=== PATIENT | female | born 1945 | race Caucasian/White ===

== ENCOUNTER 2020-09-19 07:58 | Inpatient (IN) | payer MEDICARE, OTHER, MEDICAID ==
[~2020-09-19] VITALS: Ht 149.9 cm; Wt 54.4 kg
--- NOTE | ~2020-09-19 | EMS ---
[address] [address] EMS Patient Care Report Name: MIKALA MESSER Room: [address] IN M.R.#: [id number] Admission: 09/19/20 Attend Phys: Tessie Black MD Discharge: Date of : 43 Report #: [id number] THIS REPORT FOR: //name// Report Transmitted: 09/19/2020 13:15 EMS Care Summary [place] Incident [phone] @ 09/19/2020 07:08 Incident Location [address] [place] [id number] Patient MIKALA MESSER Female, 75 Years 1945 Patient Address [address] [place], [place] [id number] Patient History Hypertension (HTN),Atrial Fibrillation, Patient Allergies No known allergies, Patient Medications Other, Metoprolol, Hydrochlorothiazide (Hctz), Atorvastatin, Chief Complaint syncope Disposition Transported No Lights/[place] Dispatch Reason Falls Transported To [facility] Narrative Dispatched to a residence for 75y/o female who fell. Upon arrival pt. was sitting on the floor alert and oriented. Pt. stated that after having a bowel movement she stood up and felt lightheaded and lowered herself to the floor. [address] [address] EMS Patient Care Report Name: MIKALA MESSER OCTOBER Room: [address] IN [place].#: [id number] Admission: 09/19/20 Attend Phys: Tessie Black MD Discharge: Date of : 43 Report #: [id number] Pt. denies LOC and any injury. Pt. has history of HTN and family stated that pt. has had similar incidents when her BP is "messed up". BP was checked while sitting on the floor and then again when standing. When pt. stood up she felt lightheaded and had to be supported by EMS. BP decreased substantially when standing. Pt. VS remained stable throughout transport and pt. had no complaints during transport. Pt. was transported to [place] for emergency services. Initial Vitals @07:12P: 89,R: 18,BP: 145/84,Pain: 0/10,GCS: 15,Glucose: 126,SpO2: 94,Revised Trauma: 12,IN Suspected: false @07:14P: 98,R: 18,BP: 96/49,Pain: 0/10,GCS: 15,SpO2: 94,Revised Trauma: 12, @07:25P: 70,R: 18,BP: 145/72,Pain: 0/10,GCS: 15,SpO2: 95,Revised Trauma: 12, @07:40P: 90,R: 18,BP: 140/80,Pain: 0/10,GCS: 15,SpO2: 95,Revised Trauma: 12, Assessments @07:10MENTAL:No Abnormalities,SKIN:No Abnormalities,HEENT:Head/Face: No Abnormalities,Eyes: No Abnormalities,Neck/Airway: No Abnormalities,LUNG SOUNDS:General: No Abnormalities,Left Upper: No Abnormalities,Right Upper: No Abnormalities,Left Lower: No Abnormalities,Right Lower: No Abnormalities,ABDOMEN:General: No Abnormalities,Left Upper: No Abnormalities,Right Upper: No Abnormalities,Left Lower: No Abnormalities,Right Lower: No Abnormalities,PELVIS//GI:No Abnormalities,EXTREMITIES:Left Arm: No Abnormalities,Right Arm: No Abnormalities,Left Leg: No Abnormalities,Right Leg: No Abnormalities,PULSE:NEURO:No Abnormalities, Impression Syncope / Fainting Procedures @07:30Saline Lock 0cc (20 ga) Site: Hand-LeftResponse: UnchangedFailed@07:45Saline Lock 10cc (20 ga) Site: Forearm-RightResponse: UnchangedSucceeded Timeline 07:05,Call Received 07:08,Dispatched 07:09,En Route 07:09,Initial Responder On Scene 07:09,On Scene 07:10,At Patient 07:12,BP: 145/84 M,PULSE: 89,RR: 18 R,SPO2: 94 Ox,ETCO2: ,B,PAIN: 0,GCS: 15, 07:14,BP: 96/49 M,PULSE: 98,RR: 18 R,SPO2: 94 Ox,ETCO2: ,BG: ,PAIN: 0,GCS: 15, 07:25,BP: 145/72 M,PULSE: 70,RR: 18 R,SPO2: 95 Ox,ETCO2: ,BG: ,PAIN: 0,GCS: 15, 07:30,Saline Lock 0cc 20 ga Site: Hand-Left,Response: UnchangedFailed, 07:33,[place] [address] EMS Patient Care Report Name: MIKALA MESSER OCTOBER Room: [address] IN M.R.#: [id number] Admission: 09/19/20 Attend Phys: Tessie Black MD Discharge: Date of : 43 Report #: [id number] 07:40,BP: 140/80 M,PULSE: 90,RR: 18 R,SPO2: 95 Ox,ETCO2: ,BG: ,PAIN: 0,GCS: 15, 07:45,Saline Lock 10cc 20 ga Site: Forearm-Right,Response: UnchangedSucceeded, 07:52,At Destination 07:55,Transfer Patient 08:28,Call Closed 08:28,In District Disclaimer v1.1 Copyright 2020 [employer] This EMS Care Summary contains data elements from the applicable legal record (which may be displayed differently). It is designed to provide pertinent information for the following purposes: continuity of care, clinical quality, and state data reporting. The complete legal record is available to ED staff and administrators of the receiving hospital in [employer] Patient Tracker. All data is provided "as is."
[2020-09-19 08:43] LABS: ABSOLUTE LYMPHOCYTES 0.7 thou/uL (0.8-5.3); ABSOLUTE MONOCYTES 0.5 thou/uL (0.0-1.2); ABSOLUTE NEUTROPHILS 3.2 thou/uL (1.6-8.1); BASOPHILS 0.5 %; EOSINOPHILS 0.3 %; HEMATOCRIT 40.8 % (37.0-47.0); HEMOGLOBIN 13.6 gm/dL (12.0-15.0); LYMPHOCYTES 15.4 %; MCH 29.4 pg (26.0-34.0); MCHC 33.3 g/dL (28.0-37.0); MCV 88.2 fL (80.0-100.0); MONOCYTES 10.6 %; MPV 7.2 fl. (7.2-11.1); NUCLEATED RBCS 0 /100WBC; PLATELET COUNT* 164 thou/uL (150-400); POLYS 73.2 %; RBC 4.63 mil/uL (4.20-5.00); RDW-CV 12.4 % (10.5-14.5); WBC 4.4 thou/uL (4.0-11.0)
[2020-09-19 08:52] LABS: CALCIUM 9.1 mg/dL (8.5-10.1); CREATININE 1.1 mg/dL (0.6-1.3); POTASSIUM 3.1 mmol/L (3.5-5.1)
[2020-09-19 08:53] LABS: PROTIME 10.6 Seconds (9.20-11.50)
[2020-09-19 08:59] LABS: ALBUMIN 3.3 g/dL (3.4-5.0); TOTAL BILIRUBIN 0.8 mg/dL (<0.1-1.0); TOTAL PROTEIN 7.4 g/dL (6.4-8.2)
[2020-09-19 09:09] LABS: URINE BILIRUBIN NEGATIVE (Negative); URINE BLOOD NEGATIVE (Negative); URINE CLARITY CLEAR; URINE COLOR YELLOW; URINE GLUCOSE-RANDOM NEGATIVE (Negative); URINE KETONES NEGATIVE (Negative); URINE LEUKOCYTES-REFLEX NEGATIVE (Negative); URINE NITRITE-REFLEX NEGATIVE (Negative); URINE PROTEIN NEGATIVE (Negative); URINE UROBILINOGEN 0.2 E.U./dl (0.2-1.0)
[2020-09-19] MEDS ORDERED: LIPITOR40 MG PO (09:10)
[2020-09-19] MEDS ORDERED: KAPSPARGO SPRIN25 MG PO (09:11)
[2020-09-19] MEDS ORDERED: HYDROCHLOROTH12.5 M1 PO (09:12)
[2020-09-19] MEDS ORDERED: TYLENOL EXTRA500 MG PO (09:12)
[2020-09-19 11:40] VITALS: BP 154/89
[2020-09-19 19:45] VITALS: BP 154/91
[2020-09-20 00:23] VITALS: BP 158/86
[2020-09-20 04:27] LABS: HEMATOCRIT 35.6 % (37.0-47.0); HEMOGLOBIN 12.1 gm/dL (12.0-15.0); MCHC 33.9 g/dL (28.0-37.0); MCV 88.5 fL (80.0-100.0); RBC 4.02 mil/uL (4.20-5.00); RDW-CV 12.6 % (10.5-14.5); WBC 5.2 thou/uL (4.0-11.0)
[2020-09-20 04:30] LABS: CALCIUM 8.2 mg/dL (8.5-10.1); CREATININE 0.9 mg/dL (0.6-1.3); POTASSIUM 3.9 mmol/L (3.5-5.1)
[2020-09-20 05:01] VITALS: BP 185/89
[2020-09-20 08:00] VITALS: BP 151/84
--- NOTE | 2020-09-20 09:47 | EKG ---
[place] [address] ELECTROCARDIOGRAM REPORT Name: MIKALA MESSER OCTOBER Room: [address] ADM IN M.R.#: [id number] Admission: 09/19/20 Attend Phys: Tessie Black MD Discharge: Date of : 43 Date of Service: 09/19/20800 Report #: [id number] THIS REPORT FOR: //name// [facility] ED Test Date: 2020-09-19 Test Time: 08:01:04 Pat Name: MIKALA MESSER Department: Room: [facility] Gender: F [employer] Counterperson: LINH : 1945 Requested By: Gerber Rincon Order Number: [id number] MD: Reji Figueroa Measurements Intervals [place] Rate: 86 P: -12 MI: 141 QRS: 80 QRSD: 100 T: 56 QT: 385 QTc: 461 Interpretive Statements Sinus rhythm Atrial premature complex Anterior infarct, old No previous ECG available for comparison Electronically Signed On 09-20-2020 9:47:49 CDT by Reji Figueroa [email or web address] <ELECTRONICALLY SIGNED> By: Oseas Figueroa MD, FACC 09/20/20 0947 0 0 Oseas Figueroa MD, [facility] /EPI
[2020-09-20 12:00] VITALS: BP 140/75
[2020-09-20 16:00] VITALS: BP 168/72
[2020-09-21 04:00] VITALS: BP 159/69
[2020-09-21 04:55] LABS: HEMATOCRIT 34.8 % (37.0-47.0); HEMOGLOBIN 11.9 gm/dL (12.0-15.0); MCH 30.5 pg (26.0-34.0); MCHC 34.3 g/dL (28.0-37.0); MCV 88.8 fL (80.0-100.0); MPV 8.2 fl. (7.2-11.1); RBC 3.92 mil/uL (4.20-5.00); RDW-CV 12.4 % (10.5-14.5); WBC 6.7 thou/uL (4.0-11.0)
[2020-09-21 05:01] LABS: CALCIUM 8.2 mg/dL (8.5-10.1); CREATININE 0.7 mg/dL (0.6-1.3); POTASSIUM 3.3 mmol/L (3.5-5.1)
[2020-09-21 07:54] VITALS: BP 161/65
[2020-09-21] MEDS ORDERED: CEFDINIR300 MG PO (09:18)
[2020-09-21 12:16] VITALS: BP 168/99
[2020-09-21 12:42] VITALS: BP 168/99
== END 2020-09-21 15:30 | disposition home or self-care (01) | DRG 177 ==
LOC: M.ERS 07:58 → M.2W 09:49 → M.TBA-ER 09:49 → M.2W 11:47
PROVIDERS: Family Medicine; ADMIT Family Medicine; ATTEND Family Medicine
DX: U07.1 COVID-19 (principal); J12.82 Pneumonia due to coronavirus disease 2019; E87.1 Hypo-osmolality and hyponatremia; I48.19 Other persistent atrial fibrillation; I10 Essential (primary) hypertension; E87.6 Hypokalemia; E83.42 Hypomagnesemia; Z79.899 Other long term (current) drug therapy